=== PATIENT | male | born 1950 ===

== ENCOUNTER 2024-07-11 18:37 | Inpatient (IN) | payer MEDICARE ==
[~2024-07-11] VITALS: Ht 188 cm; Wt 99.0 kg
[~2024-07-11 18:37] MED LIST: COLACE50 MG PO; FLOMAX 0.40.4 MG/CAP PO; NEXIUM 40MG40 MG PO; OXYCODONE H5 MG/5 ML PO; PROZAC 20MG20 MG PO
--- NOTE | 2024-07-11 21:50 | NUR ---
PT ARRIVED VIA EMS TO ROOM 328 PER STRETCHER. IS ALERT AND ORIENTED X4. HAS INT TO RT HAND. HAS EMS SPLINT TO LT LEG. PATELLA SIGNIFICANTLY SWOLLEN. ICE PACK REPLACED.
[2024-07-11 22:06] VITALS: BP 144/82; PULSE 50; TEMP 97.9
[2024-07-11] MEDS ORDERED: PROTONIX 40MG T40 MG PO (22:20)
[2024-07-11] MEDS ORDERED: LIPITOR 80MG80 MG PO (22:20)
[2024-07-11] MEDS ORDERED: SYNTHROID0.075 MG/T PO (22:21)
[2024-07-11] MEDS ORDERED: PROZAC40 MG PO (22:21)
[2024-07-11] MEDS ORDERED: CEPHALEXIN500 M1 PO (22:22)
[2024-07-11] MEDS ORDERED: ASPIRIN E.C. 8181 MG PO (22:31)
--- NOTE | 2024-07-11 22:52 | NUR ---
PLACED LT LEG IN AN IMMOBILIZER, ICE PACK IN PLACE AND ELEVATED ON PILLOWS. ADMISSION QUESTIONS COMPLETED.
[2024-07-11 23:25] VITALS: BP 120/76; PULSE 52; TEMP 97.6
[2024-07-12] VITALS (11 sets, daily range): BP systolic 111–133; BP diastolic 64–75; PULSE 51–61; TEMP 97.8–98.3
[2024-07-12] MEDS ORDERED: Ondansetron 4 MG/2 ML VIAL IV PRN (04:00)
[2024-07-12] MEDS ORDERED: Acetaminophen 325 MG TAB PO PRN (04:00)
[2024-07-12] MEDS ORDERED: NS 1,000 ML IV SCH (04:00)
--- NOTE | 2024-07-12 04:31 | NUR ---
PT UNABLE TO URINATE AFTER TRYING SEVERAL TIMES. BLADDER [id number]. NEW ORDER TO PLACE HODGE CATHETER.
--- NOTE | 2024-07-12 04:45 | NUR ---
PLACED 16FR HODGE WITHOUT PROBLEM, IMMEDIATE RETURN OF DK YELLOW URINE. PLACED TO BSD. PT TOLERATED PROCEDURE WITHOUT PROBLEM.
--- NOTE | 2024-07-12 04:57 | NUR ---
IVF STARTED AT 75CC/HR TO RT HAND SITE, INFUSING WITHOUT PROBLEM. LT LEG ELEVATED ON PILLOWS, ICE PACK REPLACED. PT NPO.
--- NOTE | 2024-07-12 08:00 | NUR ---
PATIENT IS A&O, VERY TALKATIVE & FRIENDLY. VSS. REPORTS PAIN IN LLE AT 3/10, DENIES NEED FOR NARCOTICS AT THIS TIME. PATIENT RESTING UP IN BED WITH LLE ELEVATED AND TECHNOL BRACE INPLACE. ICE PACK TO LLE. HODGE TO DD. IV FLUIDS INFUSING VIA PUMP INTO RIGHT HAND IV. NPO FOR PENDING SURGERY, HOSPITALIST TO CLEAR, SEE ORDERS. HEAD TO TOE ASSESSMENT COMPLETE. NO NEEDS AT THIS TIME. CALL LIGHT IN REACH.
[2024-07-12] MEDS ORDERED: Pantoprazole 40 MG in NS 10 ML IV SCH (09:00)
--- NOTE | 2024-07-12 10:10 | NUR ---
ROUNDWILLY ON UNIT, MADE AWARE OF CONSULT AND WILL SEE THE PATIENT TODAY
[2024-07-12] MEDS ORDERED: ceFAZolin 2 G in Water For Injection,Sterile 20 ML IV SCH (11:00)
--- NOTE | 2024-07-12 13:26 | NUR ---
trailhead construction worker met with pt, his , Neetu [phone], and daughter in room to discuss discharge planning. He reports to live with them in [place]. He sees Dr. Euceda and obtains medications from [facility] with no difficulties. reports pt has Medicare [employer] and [employer] insurance. SW obtained copies of this and placed on chart. Pt reports to be independent with ADLS and uses a CPAP for DME. He states his DPOA-HC is likely his and their copy is at the [facility]. SHARON attended clinical rounding and was informed PT/OT cannot be ordered until Ortho sees pt and determines weight bearing status. Discharge Plan: tbd
--- NOTE | 2024-07-12 21:00 | NUR ---
PT IS A&O X4 LAYING IN BED. VSS. BRACE TO LLE & ELEVATED ON PILLOW. PT DENYING THE NEED FOR PRN PAIN MEDS AT THIS TIME. HODGE TO DD WITH YELLOW OUTPUT. NS AT 75MLS/HR INFUSING TO RT WRIST. PT EDUCATED ON NPO AT MIDNIGHT. DENYING FURTHER NEEDS. CALL LIGHT IN REACH
[2024-07-12] MEDS ORDERED: Melatonin 3 MG TAB PO PRN (23:45)
[2024-07-13] VITALS (18 sets, daily range): BP systolic 105–134; BP diastolic 59–84; PULSE 51–71; TEMP 97.6–98.2
--- NOTE | 2024-07-13 05:50 | NUR ---
PT RESTING IN BED WITH UNLABORED RESP. PAIN CONTROLLED WITH PRN TYLENOL THROUGHOUT THE NIGHT. PT DENYING NEEDS. CALL LIGHT IN REACH
[2024-07-13 06:39] LABS: BASO % 0.1 % (0.0-2.0); EOS # 0.1 K/mm3 (0.0-0.7); EOS % 1.9 % (0.0-4.0); GRAN # 5.5 K/mm3 (1.4-6.5); GRAN % 72.6 % (42.2-75.2); HEMATOCRIT 37.4 % (42.0-52.0); HEMOGLOBIN 12.5 g/dl (13.5-18.0); LYMPH # 1.3 K/mm3 (1.2-3.4); LYMPH % 17.7 % (20.0-51.0); MEAN CELL VOLUME 91 fl (80.0-100.0); MEAN CORPUSCULAR HEMOGLOBIN 30 pg (27-31); MEAN CORPUSCULAR HGB CONC 33 g/dl (33.0-37.0); MEAN PLATELET VOLUME 9.7 fl (7.4-10.4); MONO # 0.6 K/mm3 (0.1-0.6); MONO % 7.4 % (1.7-9.3); PLATELET COUNT 175 K/mm3 (130-400); RED BLOOD COUNT 4.13 M/mm3 (4.20-5.60); REDCELL DISTRIBUTION WIDTH-CV 12.9 % (11.5-14.5)
[2024-07-13 07:13] LABS: CALCIUM 8.4 mg/dL (8.4-10.2); CREATININE, serum 0.91 mg/dL (0.72-1.25); POTASSIUM 4.6 mEq/L (3.5-4.5)
--- NOTE | 2024-07-13 10:24 | NUR ---
SHIFT ASSESSMENT COMPLETE. VSS. PATIENT RESTING IN BED AWAITING SURGERY. ALL MORNING MEDS GIVEN ORDERED. PATIENT STATES PAIN 2/10 THIS AM NO PAIN MEDS REQUESTED. PATIENT HAS NO REQUEST AT THIS TIME. FALL PRECAUTIONS IN PLACE AND CALL LIGHT IN REACH
--- NOTE | 2024-07-13 13:05 | NUR ---
SW attended clinical rounding and was infomed pt will have surgery this afternoon. PT/OT cannot yet be ordered to determine pt's needs. Discharge Plan: surg today then therapies
[2024-07-13] MEDS ORDERED: fentaNYL 50 MCG/ML 2 ML VIAL ONE ×2 (15:41→17:10)
[2024-07-13] MEDS ORDERED: Ondansetron 4 MG/2 ML VIAL ONE (15:41)
[2024-07-13] MEDS ORDERED: NS 10 ML IV ONE (15:41)
[2024-07-13] MEDS ORDERED: dexAMETHasone 10 MG/ML VIAL ONE (15:41)
[2024-07-13] MEDS ORDERED: Naloxone 0.4 MG/ML VIAL IV PRN (16:15)
[2024-07-13] MEDS ORDERED: ePHEDrine 50 MG/ML VIAL ONE (16:22)
[2024-07-13] MEDS ORDERED: Rocuronium 50 MG/5 ML Multi-Dose VIAL ONE (16:38)
[2024-07-13] MEDS ORDERED: HYDROmorphone 1 MG/1 ML SYRINGE [PACU/SDC ONLY] IV PRN (18:00)
[2024-07-13] MEDS ORDERED: fentaNYL 50 MCG/ML 1 ML SYRINGE/VIAL [PACU/SDC ONLY] IV PRN ×2 (18:00)
[2024-07-13] MEDS ORDERED: Meperidine 50 MG/ML 1 ML VIAL IV PRN (18:00)
[2024-07-13] MEDS ORDERED: droPERidol 2.5 MG/ML 2 ML VIAL IV PRN (18:00)
[2024-07-13] MEDS ORDERED: Ondansetron 4 MG/2 ML VIAL IV PRN (18:00)
[2024-07-13] MEDS ORDERED: hydrALAZINE 20 MG/ML 1 ML VIAL IV PRN (18:00)
--- NOTE | 2024-07-13 18:40 | NUR ---
PATIENT ARRIVED TO FLOOR FROM PACU. VSJordan. TRACY AT BED SIDE PATIENT REPORTS NO PIAN AT THIS TIME. READY TO EAT. TOLERATED JELLO AND SIPS OF WATER. BED ALARM ON AND CALL LIGHT IN REACH.
--- NOTE | 2024-07-13 19:15 | NUR ---
REPORT RECEIVED FROM ALEX TAFOYA. PT A&O X4 BUT DROWSY RESTING IN BED. ON POSTOP VITALS, WNL. CALL LIGHT IN REACH
[2024-07-13] MEDS ORDERED: Atorvastatin 80 MG TAB PO SCH (21:00)
--- NOTE | 2024-07-13 21:45 | NUR ---
PT A&O X4 SITTING UP IN BED. POST OP VITALS REMAIN WNL. PT TOLERATED DINNER TRAY WITHOUT N/V. REPORTS PAIN 02/04 TO LLE, GAVE PRN TYLENOL PER JAN. DRSG TO LLE CDI & TECHNOL BRACE ON, LEG ELEVATED ON PILLOW & ICE PACK ON. BLE PULSE +2. NS AT 75MLS/HR INFUSING TO RT HAND. PT DENYING FURTHER NEEDS. CALL LIGHT IN REACH
[2024-07-14] VITALS (12 sets, daily range): BP systolic 123–146; BP diastolic 71–83; PULSE 59–67; TEMP 97.8–98.1
--- NOTE | 2024-07-14 05:24 | NUR ---
PT WAS C/O PAIN 07/07 TO LLE. NOTIFIED HOSPITALIST SAGAR & NEW ORDER FOR BASILIO BOOKER, GAVE PER JAN AROUND 0400. PT NOW RESTING IN BED WITH UNLABORED RESP. CALL LIGHT IN REACH
[2024-07-14 07:17] LABS: BASO % 0.1 % (0.0-2.0); GRAN # 8.8 K/mm3 (1.4-6.5); HEMOGLOBIN 11.7 g/dl (13.5-18.0); LYMPH # 0.7 K/mm3 (1.2-3.4); LYMPH % 7.4 % (20.0-51.0); MEAN CELL VOLUME 87 fl (80.0-100.0); MEAN CORPUSCULAR HEMOGLOBIN 30 pg (27-31); MEAN CORPUSCULAR HGB CONC 34 g/dl (33.0-37.0); MEAN PLATELET VOLUME 9.2 fl (7.4-10.4); MONO # 0.5 K/mm3 (0.1-0.6); MONO % 5.2 % (1.7-9.3); PLATELET COUNT 223 K/mm3 (130-400); RED BLOOD COUNT 3.89 M/mm3 (4.20-5.60); REDCELL DISTRIBUTION WIDTH-CV 12.8 % (11.5-14.5)
[2024-07-14 07:33] LABS: CALCIUM 8.5 mg/dL (8.4-10.2); CREATININE, serum 0.87 mg/dL (0.72-1.25); POTASSIUM 4.2 mEq/L (3.5-4.5)
[2024-07-14] MEDS ORDERED: FLUoxetine 20 MG CAP PO SCH (09:00)
--- NOTE | 2024-07-14 09:51 | NUR ---
SHIFT ASSESSMENT COMPLETE. VSS. PATIENT AWAKE IN BED READY TO GET UP AND WORK WITH PT. ALL MORNING MEDS GIVEN ORDERED. PATIENT STATES PAIN TO LEFT KNEE 5/10 PAIN MEDS GIVEN ORDERED. PATIENT HAS NO OTHER REQUEST AT THIS TIME. BED ALARM ON AND CALL LIGHT IN REACH
--- NOTE | 2024-07-14 13:28 | NUR ---
SW met with patient to discuss discharge needs. PT notes reviewed and patient progress discussed with RN. Patient doing well with therapy and open to discussion of home with HH. Pt agreeable and was provided with [email or web address] list of HH providers for review. SW will follow up for choice of HH agency to send referral. Discharge plan: Home with HH
--- NOTE | 2024-07-14 20:20 | NUR ---
PT A&O X4 LAYING IN BED. VSS. PT AMBULATED TO RESTROOM & BACK TO BED WITH X1 ASSIST & ABLE TO VOID. PT REPORTING PAIN / TO LLE, TOO EARLY FOR PRN NORCO. SPOKE WITH HOSPITALIST SAGAR ABOUT PTS PAIN & VERBAL ORDER THAT IT IS OK TO GIVE PT AN ADDITIONAL ONE TIME DOSE OF NORCO NOW, GAVE PER JAN. LLE JACQUELINEG IS CDI & TECHNOL BRACE ON. CMS WNL. PT DENYING FURTHER NEEDS. CALL LIGHT IN REACH.
[2024-07-15] VITALS (12 sets, daily range): BP systolic 106–157; BP diastolic 66–87; PULSE 54–62; TEMP 97.6–98.4
--- NOTE | 2024-07-15 05:45 | NUR ---
PT AWAKE LAYING IN BED. REPORTING PAIN 3/10 TO LLE, GAVE PRN NORCO PER MAR & ICE PACK. LLE ELEVATED ON PILLOWS. UP TO RESTROOM THROUGHOUT NIGHT WITH X1 ASSIST. DENYING FURTHER NEEDS. CALL LIGHT IN REACH
--- NOTE | 2024-07-15 07:02 | NUR ---
Bedside report received from ALEX Márquez. Pt awake in bed with no complaints. Call light within reach.
--- NOTE | 2024-07-15 08:35 | NUR ---
Pt awake in bed asking when next pain medication is available. This nurse provided requested information to pt. Shift assessment completed. VSS. Pt rates pain in LLE 02/04, denies ice pack at this time. Immoblizer in place on LLE. INT to Rt hand patent with no swelling, redness, or drainage. Pt has no reuqest at this time. Call light within reach and fall precautions in place.
--- NOTE | 2024-07-15 10:39 | NUR ---
INT to Rt hand discontinued with tip intact, pt tolerated well with no complaints. 20g IV started into Lt hand x1 attempt with no complications. Pt tolerated well. Pt ambulated x1 assist to bathroom and to recliner with walker and no complications. Pt has no request at this time. Call light within reach and fall precautions in place.
--- NOTE | 2024-07-15 12:42 | NUR ---
SW notified by attending and Ortho TRAINING SYSTEMS OFFICER that patient will require rehab at discharge. Patient was provided with Medicare.gov list of SNF facilities to review. He is asking for referral to [facility] and [facility] as plan B. Referrals faxed. Discharge plan: SNF vs SB
--- NOTE | 2024-07-15 19:30 | NUR ---
SHIFT ASSESSMENT COMPLETE. VSS. PATIENT AWAKE IN BED. ALL NIGHT MEDS GIVEN ORDERED. PATIENT COMPLAINING OF PAIN 4/10 JAIME MEDS GIVEN PER ORDERS. PATIENT HAS NO OTHER REQUEST AT THIS TIME. BED ALARM ON AND CALL LIGHT IN REACH
[2024-07-16] VITALS (7 sets, daily range): BP systolic 147–159; BP diastolic 82–97; PULSE 60–71; TEMP 98–98.6
[2024-07-16] MEDS ORDERED: ASPI325T6 PO (07:36)
[2024-07-16] MEDS ORDERED: TYLENOL 325MG325 MG PO (07:37)
--- NOTE | 2024-07-16 08:20 | NUR ---
Patient resting in bed. Finished brakfast tray without problems. Ortho rounded,plan of care reviewed. Aquacell dressing as ordered to Left knee, Farhana saeed BLE. Immobilizer on. Patient in good spirits. Will monitor
[2024-07-16] MEDS ORDERED: NORCO 325 MG-51 TAB PO (10:27)
--- NOTE | 2024-07-16 10:35 | NUR ---
Patient resting in bed. Worked with therapy. Reports increased pain after. Requesting [place]. One tab as ordered. Social work working on discharge planning
--- NOTE | 2024-07-16 10:49 | NUR ---
SHARON notified that patient is stable for discharge. SHARON spoke with Erica at [facility] who states patient is accepted for admission. Patient notified and is calling his to have her pick him up for transportation. She will be here around 1400. SHARON reviewed Medicare IM form with patient who voiced understanding and agreement to discharge. Patient signed form, original on chart, copy to patient. Discharge orders and updated clinicals faxed to . RN notified of transport time.
--- NOTE | 2024-07-16 11:29 | NUR ---
D: Passenger Flagman stopped by room on rounds. A: Pt was resting and content on the phone with his discussing discharge. Pt has no needs right now. P: Passenger Flagman informed pt that if he needed anything from the security sales manager area before he left to let his nurse know. Passenger Flagman will follow up as needed.
--- NOTE | 2024-07-16 14:48 | NUR ---
Patient ready for dicharge. Loaded to family vehicle. report called to [place] and questions answered. Pain medication prior to discharge.
== END 2024-07-16 14:51 | disposition swing bed (61) | DRG 517 ==
LOC: SURG 18:37
PROVIDERS: Nurse Practitioner; Orthopaedic Surgery; ADMIT Internal Medicine
PROC: 0QSF04Z Reposition Left Patella with Internal Fixation Device, Open Approach (ICD-10-PCS; principal; 2024-07-13 16:30)
DX: S82.032A Displaced transverse fracture of left patella, initial encounter for closed fracture (principal); I10 Essential (primary) hypertension; M54.30 Sciatica, unspecified side; N40.0 Benign prostatic hyperplasia without lower urinary tract symptoms; K21.9 Gastro-esophageal reflux disease without esophagitis; M54.50 Low back pain, unspecified; E03.9 Hypothyroidism, unspecified; F32.A Depression, unspecified; E78.5 Hyperlipidemia, unspecified; I65.22 Occlusion and stenosis of left carotid artery; W01.0XXA Fall on same level from slipping, tripping and stumbling without subsequent striking against object, initial encounter; I07.1 Rheumatic tricuspid insufficiency; Y93.89 Activity, other specified; Z79.82 Long term (current) use of aspirin; Z79.899 Other long term (current) drug therapy; Z79.890 Hormone replacement therapy; Y92.89 Other specified places as the place of occurrence of the external cause; Z86.73 Personal history of transient ischemic attack (TIA), and cerebral infarction without residual deficits
CPT/HCPCS: J0665; J0688; J0690; J1100; J1170; J2405; J2470; J2704; J3010; J7030